=== PATIENT | female | born 1990 | race Caucasian/White ===

== ENCOUNTER 2018-04-20 00:13 | Emergency (ER) | payer MEDICAID, SELFPAY ==
[2018-04-20 00:15] VITALS: BP 129/88; PULSE 72; RESP 16; TEMP 37; O2SAT 100
--- NOTE | 2018-04-20 00:30 | W.ED.GENAD ---
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 Details Chief Complaint: Abd Prob Clinical Impression: Abdominal pain Primary Care Provider: Mainor Brooks ED Provider: Kendrick Moraes Home Meds and New Rx's Prescriptions: Continue norgestimate-ethinyl estradiol [Waller-Linyah] 1 EACH tablet 1 ea PO DAILY RF: 0 clobetasol 15 GM ointment 15 gm Topical PRN Qty: 2 RF: 0 Discharge Instructions Instructions: Abdominal Pain (ED) Additional Instructions: Your lab work did not show any concerning findings. I suspect you have a small ovarian cyst that is causing your pain you can take 1000mg tylenol and 600mg ibuprofen every 6 hours for pain as needed If you have severe worsening of pain, fevers or persistent vomit return to the emergency department Discharge Data Discharge Physician: Kendrick Moraes Medical Decision Making MDM Narrative Medical decision making narrative: 28 yo female comes in with right lower abdominal pain/flank pain. She states she was here in February for similar symptoms and had negative work up, andon review of chart she had labs and ct that showed no acute pathology. She states since then she has had some mild pain in that area but today has been worse and has had nausea so she came here. She denies vomit or fevers, has had nausea. Her exam seems most likely a muscle strain given pain in oblique area but does have rlq pain though she states this pain is similar to when she was here last and had normal appendix making appendicitis less likely. No pelvic pain or intermittent pain and had normal ovaries on ct 2 months ago so doubt torsion due to mass. Will obtain lab work and reasses. Urine negative so doubt ectopic labs are unremarkable and patient is feeling much better. STill negative rovsing's, no pain at mcburney's negative obturator and psoas sign. Her CT done in February did note some pelvic free fluid which is likely from a small ovarian cyst and I suspect this is what is causing her pain now. I did offer to obtain CT but pt declined at this time and would prefer to take otc pain meds and return if she worsens and follow up with her pcp Differential Diagnosis appendicitis, ovarian cyst, oblique strain, rectus strain Lab Data Lab results reviewed: Yes I reviewed the patient's lab results. HPI - General Adult General Mode of arrival: ambulatory. Date/Time Provider Initiated Documentation: 04/20/18 00:22. Limitations to Documentation: no limitations. Information obtained by: patient. History of Present Illness 28 year old F presents to the emergency department with the chief complaint of abdominal pain, described as moderate, with intensity rated at 4. Quality is described as aching, and is localized to the abdomen. Patient reports no radiation. Patient started experiencing this hour(s) (2) and it has been constant. No relieving factors improve symptom(s), No exacerbating factors reported . Patient notes other (nausea). Patient did receive the following treatments prior to arrival, none Related Data Home Medications Medication Instructions Recorded Confirmed clobetasol 15 gm TOPICAL PRN #2 tube 03/08/17 norgestimate-ethinyl estradiol 1 ea PO DAILY 03/08/17 04/20/18 [Waller-Linyah] Allergies Allergy/AdvReac Type Severity Reaction Status Date / Time No Known Allergies Allergy Unverified 04/20/18 00:19 General Stated Complaint: Abd Prob CARMEN: 3 Review of Systems Review of Systems All systems reviewed & are unremarkable except as noted in HPI and below Constitutional Denies chills, Denies fever(s) and Denies weakness Eyes Patient Denies loss of vision ENT Denies change in voice Cardiovascular Denies chest pain and Denies dyspnea Respiratory Denies dyspnea Gastrointestinal Denies vomiting Genitourinary Denies dysuria Musculoskeletal Denies joint swelling Integumentary/Breasts Denies rash Neurologic Denies loss of vision and Denies weakness Psychiatric Denies depression Endocrine Denies cold intolerance and Denies heat intolerance Allergic/Immunologic Reports urticaria PFSH Family History Grandfather Heart disease Grandmother Breast cancer Maternal Aunt Diabetes Social History Smoking/Tobacco Use Status: Never Exam Const General: no acute distress Orientation: alert HENMT Head: normal to inspection Ears: external ears normal General nose exam: external nose normal Mouth: moist mucous membranes Eyes General: appearance normal, both eyes and all related structures Neck Neck: normal visual inspection Resp Effort & Inspection: normal respiratory effort and able to speak in complete sentences Cardio Rate: regular rate GI Inspection: normal to inspection Palpation: soft and tender other (tenderness in rlq near the ann joint, no guarding or rebound, no pain over mcburney's, negative rovsings) Skin General skin exam: no rashes or lesions noted Neuro General: alert and oriented x3 Extrem General: normal to inspection Psych Mental Status: mental status grossly normal Course Vital Signs Temperature 37 C 04/20/18 00:15 Pulse 72 04/20/18 00:15 Respiratory Rate 16 04/20/18 00:15 Blood Pressure 129/88 04/20/18 00:15 Pulse Oximetry 100 04/20/18 00:15 Temperature 37 C 04/20/18 00:15 Pulse 72 04/20/18 00:15 Respiratory Rate 16 04/20/18 00:15 Blood Pressure 129/88 04/20/18 00:15 Pulse Oximetry 100 04/20/18 00:15
--- NOTE | 2018-04-20 00:33 | ED.GENADUL_ITS ---
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 Details Chief Complaint: Abd Prob Clinical Impression: Abdominal pain Primary Care Provider: Mainor Brooks ED Provider: Kendrick Moraes Home Meds and New Rx's Prescriptions: Continue norgestimate-ethinyl estradiol [Carter-Linyah] 1 EACH tablet 1 ea PO DAILY RF: 0 clobetasol 15 GM ointment 15 gm Topical PRN Qty: 2 RF: 0 Discharge Instructions Instructions: Abdominal Pain (ED) Additional Instructions: Your lab work did not show any concerning findings. I suspect you have a small ovarian cyst that is causing your pain you can take 1000mg tylenol and 600mg ibuprofen every 6 hours for pain as needed If you have severe worsening of pain, fevers or persistent vomit return to the emergency department Discharge Data Discharge Physician: Kendrick Moraes Medical Decision Making MDM Narrative Medical decision making narrative: 28 yo female comes in with right lower abdominal pain/flank pain. She states she was here in February for similar symptoms and had negative work up, andon review of chart she had labs and ct that showed no acute pathology. She states since then she has had some mild pain in that area but today has been worse and has had nausea so she came here. She denies vomit or fevers, has had nausea. Her exam seems most likely a muscle strain given pain in oblique area but does have rlq pain though she states this pain is similar to when she was here last and had normal appendix making appendicitis less likely. No pelvic pain or intermittent pain and had normal ovaries on ct 2 months ago so doubt torsion due to mass. Will obtain lab work and reasses. Urine negative so doubt ectopic labs are unremarkable and patient is feeling much better. STill negative rovsing 's, no pain at mcburney's negative obturator and psoas sign. Her CT done in February did note some pelvic free fluid which is likely from a small ovarian cyst and I suspect this is what is causing her pain now. I did offer to obtain CT but pt declined at this time and would prefer to take otc pain meds and return if she worsens and follow up with her pcp Differential Diagnosis appendicitis, ovarian cyst, oblique strain, rectus strain Lab Data Lab results reviewed: Yes I reviewed the patient's lab results. HPI - General Adult General Mode of arrival: ambulatory . Date/Time Provider Initiated Documentation: 04/20/18 00:22 . Limitations to Documentation: no limitations . Information obtained by: patient . History of Present Illness 28 year old F presents to the emergency department with the chief complaint of abdominal pain, described as moderate, with intensity rated at 4. Quality is described as aching, and is localized to the abdomen. Patient reports no radiation. Patient started experiencing this hour(s) (2) and it has been constant. No relieving factors improve symptom(s), No exacerbating factors reported . Patient notes other (nausea). Patient did receive the following treatments prior to arrival, none Related Data Home Medications Medication Instructions Recorded Confirmed clobetasol 15 gm TOPICAL PRN #2 tube 03/08/17 norgestimate-ethinyl estradiol 1 ea PO DAILY 03/08/17 04/20/18 [Carter-Linyah] Allergies Allergy/AdvReac Type Severity Reaction Status Date / Time No Known Allergies Allergy Unverified 04/20/18 00:19 General Stated Complaint: Abd Prob CARMEN: 3 Review of Systems Review of Systems All systems reviewed & are unremarkable except as noted in HPI and below Constitutional Denies chills, Denies fever(s) and Denies weakness Eyes Patient Denies loss of vision ENT Denies change in voice Cardiovascular Denies chest pain and Denies dyspnea Respiratory Denies dyspnea Gastrointestinal Denies vomiting Genitourinary Denies dysuria Musculoskeletal Denies joint swelling Integumentary/Breasts Denies rash Neurologic Denies loss of vision and Denies weakness Psychiatric Denies depression Endocrine Denies cold intolerance and Denies heat intolerance Allergic/Immunologic Reports urticaria PFSH Family History Grandfather Heart disease Grandmother Breast cancer Maternal Aunt Diabetes Social History Smoking/Tobacco Use Status: Never Exam Const General: no acute distress Orientation: alert HENMT Head: normal to inspection Ears: external ears normal General nose exam: external nose normal Mouth: moist mucous membranes Eyes General: appearance normal, both eyes and all related structures Neck Neck: normal visual inspection Resp Effort & Inspection: normal respiratory effort and able to speak in complete sentences Cardio Rate: regular rate GI Inspection: normal to inspection Palpation: soft and tender other (tenderness in rlq near the ann joint, no guarding or rebound, no pain over mcburney's, negative rovsings) Skin General skin exam: no rashes or lesions noted Neuro General: alert and oriented x3 Extrem General: normal to inspection Psych Mental Status: mental status grossly normal Course Vital Signs Temperature 37 C 04/20/18 00:15 Pulse 72 04/20/18 00:15 Respiratory Rate 16 04/20/18 00:15 Blood Pressure 129/88 04/20/18 00:15 Pulse Oximetry 100 04/20/18 00:15 Temperature 37 C 04/20/18 00:15 Pulse 72 04/20/18 00:15 Respiratory Rate 16 04/20/18 00:15 Blood Pressure 129/88 04/20/18 00:15 Pulse Oximetry 100 04/20/18 00:15
[2018-04-20 00:38] LABS: Bilirubin Negative (Negative); Blood Negative (Negative); Clarity Clear; Glucose Negative (Negative); Ketones Negative (Negative); Leukocyte Esterase Trace (Negative); Nitrite Negative (Negative); Urobilinogen 0.2 EU/dL (Up TO 0.2)
[2018-04-20] MEDS: Normal Saline 1,000 ML 1000 ML IV (00:40)
[2018-04-20] MEDS: Ondansetron 4 MG/2 ML VIAL IVP (00:40)
[2018-04-20] MEDS: Ketorolac 15 MG/ML VIAL IVP (00:41)
[2018-04-20 00:44] LABS: Abs Immature Grans 0.01 k/cumm (0.0-0.09); Absolute Basophil Count 0.02 k/cumm (0.0-0.2); Absolute Eosinophil Count 0.09 k/cumm (0.0-0.7); Absolute Lymphocyte Count 2.58 k/cumm (1.2-3.4); Absolute Monocyte Count 0.48 k/cumm (0.11-0.7); Absolute Neutrophil Count 2.72 k/cumm (1.2-6.7); Basophils % 0.3; Eosinophils % 1.5; HCT 37.1 % (36.0-46.0); HGB 12.8 g/dL (12.0-15.5); Immature Grans % 0.2; Lymphocytes % 43.7; Mean Corp. HGB Concentration 34.5 g/dL (32.0-36.0); Mean Corpuscular Hemoglobin 31.1 pg (27.0-33.0); Mean Platelet Volume 10.4 fL (8.0-11.0); Monocytes % 8.1; Neutrophils % 46.2; Platelet Count 183 x1000/uL (130-400); RBC 4.12 m/cumm (4.00-5.20); RBC Distribution Width 12.1 % (11.7-14.6)
[2018-04-20 00:45] LABS: Bacteria Rare HPF (Negative); C & S Indicated? No/Sq. Contamination; Casts Negative LPF (Negative); Crystals Negative HPF (Negative); Epithelial Cells Moderate HPF (Negative); Mucus Negative (Negative); RBC 0-2 (0-2)
[2018-04-20 01:02] LABS: ALT 20 U/L (12-78); AST 19 U/L (15-37); Albumin 3.6 g/dL (3.4-5.0); Alkaline Phosphatase 34 U/L (46-116); Anion Gap 9.4 mmol/L (3-11); BUN 18 mg/dL (7-18); Bilirubin, Total 0.3 mg/dL (0.2-1.0); CO2 26.6 mmol/L (21.0-32.0); CREATININE 0.83 mg/dL (0.55-1.02); Calcium 8.6 mg/dL (8.5-10.1); Chloride 104 mmol/L (98-107); Glucose 103 mg/dL (70-100); Lipase 248 U/L (73-393); Potassium 3.3 mmol/L (3.5-5.1); Sodium 140 mmol/L (136-145); Total Protein 7.1 g/dL (6.4-8.2)
[2018-04-20 01:20] VITALS: BP 105/63; PULSE 69; RESP 16; TEMP 37.1; O2SAT 99
== END 2018-04-20 01:22 | disposition home or self-care (01) ==
PROVIDERS: Emergency Provider Emergency Medicine; PCP Specialist/Technologist Athletic Trainer
DX: R10.31 Right lower quadrant pain (principal); R11.0 Nausea
CPT/HCPCS: 36415; 36416; 80053; 82962; 83690; 96361; 96374; 96375; 99284; 81003; 81015; 85025; J1885; J2405

== ENCOUNTER 2018-05-02 12:05 | Outpatient (REF) | payer MEDICAID, SELFPAY ==
--- NOTE | 2018-05-02 10:00 | PAPFT_PTH ---
PATIENT: Chasity Jack LOC: [facility] U#:[id number] AGE/SX: 28/F ROOM: RE05/02/[address]: JAMIE Bacon : 1990 BED: DIS: 05/02/2018 SPEC #: [id number] RECD: 05/02/18 13:05 STATUS: TATY REMelissa #: [id number] ROBERT: 05/02/18 10:[address]: Bonnie Mcbride DEPT: [facility] Cytology RECD BY: Chayo Sloan ENTERED: 05/02/18 13:05 SP TYPE: PAPFT OTHR DR: Mainor Brooks Tissues: 1 - CX/ENDOCX FOR PAP SMEARS Procedures: PAP THIN PREP/UVM Screening Comments: [id number]
[2018-05-03 15:57] LABS: Chlamydia Result Negative; GC Result Negative; Specimen Description CERVICAL
== END 2018-05-02 12:25 ==
LOC: LBN 12:05
PROVIDERS: PCP Specialist/Technologist Athletic Trainer; Visit Provider Nurse Practitioner Family
DX: Z12.4 Encounter for screening for malignant neoplasm of cervix (principal); Z11.3 Encounter for screening for infections with a predominantly sexual mode of transmission
CPT/HCPCS: 87491; 87591; 88142

== ENCOUNTER 2018-05-05 00:19 | Outpatient (CLI) | payer MEDICAID, SELFPAY ==
--- NOTE | 2018-05-05 12:51 | DI.US_ITS ---
SYMPTOMS/DIAGNOSIS: RLQ PAIN, R10.31 PELVIC ULTRASOUND: Transabdominal and transvaginal examination was performed. The uterus measures 7.9 cm long x 3 cm AP x 4.8 cm transverse. The endometrial stripe is within normal limits at .3 cm. No myometrial mass is present. The left ovary measures 2.5 x 1.8 x 2.1 cm. There is normal blood flow. No evidence of torsion. No suspicious ovarian mass is seen. There is a small amount of free fluid adjacent to the left ovary. The right ovary measures 7.8 x 4.4 x 7.3 cm. There is a 7.3 x 4.2 x 7.6 cm anechoic well circumscribed mass in the right ovary. No internal blood flow is seen. There is normal blood flow to the right ovary. Smaller follicular cysts are present. IMPRESSION: 7.6 cm simple right ovarian cyst. A follow up examination in 6-8 weeks is recommended for re-evaluation.
== END 2018-05-05 00:39 ==
PROVIDERS: PCP Specialist/Technologist Athletic Trainer; Visit Provider Nurse Practitioner Family
DX: R10.31 Right lower quadrant pain (principal); N83.291 Other ovarian cyst, right side
CPT/HCPCS: 76830; 76856

== ENCOUNTER 2018-05-18 15:27 | Outpatient (CLI) | payer MEDICAID, SELFPAY ==
[2018-05-18 16:13] LABS: Abs Immature Grans 0.01 k/cumm (0.0-0.09); Absolute Basophil Count 0.01 k/cumm (0.0-0.2); Absolute Eosinophil Count 0.05 k/cumm (0.0-0.7); Absolute Lymphocyte Count 1.93 k/cumm (1.2-3.4); Absolute Monocyte Count 0.31 k/cumm (0.11-0.7); Absolute Neutrophil Count 4.09 k/cumm (1.2-6.7); Basophils % 0.2; Eosinophils % 0.8; HCT 38.9 % (36.0-46.0); Immature Grans % 0.2; Lymphocytes % 30.2; Mean Corp. HGB Concentration 33.4 g/dL (32.0-36.0); Mean Corpuscular Hemoglobin 30.8 pg (27.0-33.0); Mean Corpuscular Volume 92.2 fL (80-95); Mean Platelet Volume 10.6 fL (8.0-11.0); Monocytes % 4.8; Neutrophils % 63.8; Platelet Count 240 x1000/uL (130-400); RBC 4.22 m/cumm (4.00-5.20)
[2018-05-18 17:24] LABS: HCG Quant, Pregnancy < 1 mIU/mL (1-3)
== END 2018-05-18 15:47 ==
PROVIDERS: PCP Specialist/Technologist Athletic Trainer; Visit Provider Obstetrics & Gynecology
DX: Z01.818 Encounter for other preprocedural examination (principal); Z01.84 Encounter for antibody response examination; Z01.83 Encounter for blood typing
CPT/HCPCS: 36415; 86850; 86900; 86901; 84702; 85025

== ENCOUNTER 2018-05-19 06:08 | Day surgery (SDC) | payer MEDICAID, SELFPAY ==
--- NOTE | 2018-05-18 16:49 | W.PM.HP.N ---
PFSH Family History Grandfather Heart disease Grandmother Breast cancer Maternal Aunt Diabetes Medical History Lichen sclerosus (Acute) Social History Smoking/Tobacco Use Status: Never Female Reproductive History Menstrual control method: pills Total pregnancies: 0 Meds Home Medications Medication Instructions Recorded Confirmed Type clobetasol 15 gm TOPICAL PRN #2 tube 03/08/17 05/19/18 History levonorgestrel-ethinyl estradiol 1 tab PO DAILY #84 tab 05/02/18 05/19/18 Rx 0.1 mg-20 mcg tablet ibuprofen 800 mg PO PRN PRN 05/19/18 05/19/18 History ibuprofen [Advil] 400 mg PO PRN PRN 05/19/18 05/19/18 History oxycodone-acetaminophen [Percocet] 1 tab PO PRN PRN 05/19/18 05/19/18 History Allergies Allergy/AdvReac Type Severity Reaction Status Date / Time No Known Allergies Allergy Verified 05/19/18 06:26
--- NOTE | 2018-05-18 16:56 | W.PM.HP.N ---
Assessment and Plan (1) Right ovarian cyst: Current visit: Yes Status: Acute right ovarian cyst plan laparoscopic right ovarian cystectomy r/b/a discussedquestions asked and answered consent will be signed before surgery 28 yo female originally saw Bonnie Al NP for pelvic pain. An US was performed and demonstrated a RIGHT ovarian cyst 7.3x 4.2 x 7.6 cm. Ovary had normal flow and cyst is well circumscribed. Discussed options with patient and recommend due to pain and cyst size and risk for tortion laparascopic ovarian cystectomy is reasonable R/B/A procedure have been reviewed Review of Systems Review of Systems All systems reviewed & are unremarkable except as noted in HPI and below PFSH Family History Grandfather Heart disease Grandmother Breast cancer Maternal Aunt Diabetes Medical History Lichen sclerosus (Acute) Social History Smoking/Tobacco Use Status: Never Female Reproductive History Menstrual control method: pills Total pregnancies: 0 Meds Home Medications Medication Instructions Recorded Confirmed Type clobetasol 15 gm TOPICAL PRN #2 tube 03/08/17 05/18/18 History levonorgestrel-ethinyl estradiol 1 tab PO DAILY #84 tab 05/02/18 05/18/18 Rx 0.1 mg-20 mcg tablet Allergies Allergy/AdvReac Type Severity Reaction Status Date / Time No Known Allergies Allergy Verified 05/02/18 08:55 Exam Resp Effort & Inspection: normal respiratory effort Auscultation: clear to auscultation bilaterally Other: bilateral normal breath sounds Cardio Rate: regular rate Rhythm: regular rhythm Heart Sounds: S1 normal and S2 normal TV US 7.3 x 7.6 x 4.2 cm right ovarian cyst
[2018-05-19] VITALS (8 sets, daily range): BP systolic 105–117; BP diastolic 61–71; PULSE 63–74; RESP 10–20; TEMP 36.4–37.1; O2SAT 96–99
[2018-05-19] MEDS: Lactated Ringers 1,000 ML 125 ML IV ×3 (06:43→10:06)
--- NOTE | 2018-05-19 09:22 | OVAR_PTH ---
PATIENT: Chasity Jack LOC: [facility] U#:[id number] AGE/SX: 28/F ROOM: RE05/19/[address]: Tiffanie Yates MD : 1990 BED: DIS: 05/19/2018 SPEC #: [id number] RECD: 05/19/18 12:56 STATUS: TATY REQ #: [id number] ROBERT: 05/19/18 09:[address]: Tiffanie Yates DEPT: Surgical Specimen RECD BY: Chayo Sloan ENTERED: 05/19/18 12:57 SP TYPE: KIZZY PALMER DR: Mainor Brooks Tissues: 1 - OVARY BIOPSY Procedures: GROSS AND MICRO LEVEL 4 Comments: [id number]
[2018-05-19] MEDS: Cellulose,Oxidized 4X8 1 PACKET MC (10:10)
[2018-05-19] MEDS: Bupivacaine 0.5% Pres-Free 30 ML VIAL (10:18)
--- NOTE | 2018-05-19 10:56 | W.PM.OP ---
Date of service: 05/19/18 Operative Note DATE OF PROCEDURE: 05/19/18 PRE-OP DIAGNOSIS: left ovarian cyst POST-OP DIAGNOSIS: same PROCEDURE: Laparoscopic Left ovarian cystectomy Patient was taken to OR were she was properly identified. She was then placed on table the operating table in a dorsal supine position and general anesthesia was induced without difficulty. SCD boots were applied she was positioned in a dorsal lithotomy position and she was prepped and draped in the usual fashion. A formal time out procedure was performed confirming patient and procedure. Three laparoscopic ports were placed after injecting with marcaine .25% 5 mm port at umbilicus and rlq and 10mm port rlq. The patient was placed in Trendelenberg position and an inspection of pelvis and abdomen ensued with the above findings. Attention was turned to the right ovary it was elevated and a linear incision was made in the ovarian capsule. the tissue was opened to the underlying cyst . the cyst was dissected free and the ovarian cyst wall removed with a series of counter traction. The ovarian base was cauterized until hemostyatic a layer of surgicel was applied. The pelvis was copiously irrigated and hemostasis was confirmed. The abdomen was desufflated of gas , hemostasis remained and th eports were removed, The LLQ fascia was closed with a figure of eight of 2-0 vicryl. The skin was closed with 4-0 vicryl in a subcuticular fashion. Sponge lap needle instrument count was correct x 2. The patient was awakened and transferred to PACU in stable condition. SURGEON: Tiffanie Yates ANESTHESIA: GETA ESTIMATED BLOOD LOSS: 100 PATHOLOGY: other (left ovarian cyst wall) COMPLICATIONS: None Patient was transported to: PACU Patient's condition: stable Implants: none Indications: Large left ovarian cyst Pain and reduce tortion risk Findings: left simple ovarian cyst normal right ovary normal tubes uterus bladder ureters appendix and gb
[2018-05-19] MEDS: oxyCODONE 5 mg/Acetaminophen 325 mg TAB PO (11:57)
== END 2018-05-19 13:50 | disposition home or self-care (01) ==
PROVIDERS: PCP Specialist/Technologist Athletic Trainer; Visit Provider Obstetrics & Gynecology
PROC: (CPT 58662; principal; 2018-05-19 07:30)
DX: N83.01 Follicular cyst of right ovary (principal)
CPT/HCPCS: 58662; 88305; NC; J0131; J1100; J1200; J1885; J2250; J2405; J3010

== ENCOUNTER 2018-09-13 14:45 | Outpatient (REF) | payer MEDICAID, SELFPAY ==
[2018-09-13 20:11] LABS: HCT 39.1 % (36.0-46.0); HGB 12.8 g/dL (12.0-15.5)
[2018-09-13 20:37] LABS: Anion Gap 9.5 mmol/L (3-11); BUN 14 mg/dL (7-18); CO2 27.5 mmol/L (21.0-32.0); CREATININE 0.92 mg/dL (0.55-1.02); Calcium 8.7 mg/dL (8.5-10.1); Chloride 105 mmol/L (98-107); Cholesterol 177 mg/dL (50-200); Glucose 111 mg/dL (70-100); HDL Cholesterol 54 mg/dL (40-60); LDL CHOLESTEROL 102 mg/dL (<100); Magnesium 1.9 mg/dL (1.8-2.4); Potassium 3.7 mmol/L (3.5-5.1); Sodium 142 mmol/L (136-145); Triglyceride 78 mg/dL (30-150)
== END 2018-09-13 15:05 ==
LOC: NCHCN 14:45
PROVIDERS: PCP Specialist/Technologist Athletic Trainer; Visit Provider Specialist/Technologist Athletic Trainer
DX: R42 Dizziness and giddiness (principal); Z00.00 Encounter for general adult medical examination without abnormal findings
CPT/HCPCS: 80048; 80061; 83721; 83735; 85014; 85018

== ENCOUNTER 2019-07-10 12:39 | Outpatient (REF) | payer OTHER, SELFPAY ==
--- NOTE | 2019-07-10 09:30 | PAPFT_PTH ---
PATIENT: Chasity Jack LOC: [facility] U#:[id number] AGE/SX: 29/F ROOM: RE07/10/[address]: JAMIE Bacon : 1990 BED: DIS: 07/10/2019 SPEC #: [id number] RECD: 07/10/19 12:54 STATUS: TATY REMelissa #: [id number] ROBERT: 07/10/19 09:[address]: Bonnie Mcbride DEPT: [facility] Cytology RECD BY: Chayo Sloan ENTERED: 07/10/19 12:55 SP TYPE: PAPFT OTHR DR: Mainor Brooks Tissues: 1 - CX/ENDOCX FOR PAP SMEARS Procedures: PAP THIN PREP/UVM Screening Comments: [id number]
[2019-07-11 12:50] LABS: Chlamydia Result Negative (Negative)
[2019-07-11 16:09] LABS: GC Result Negative (Negative)
== END 2019-07-10 12:59 ==
LOC: LBN 12:39
PROVIDERS: PCP Specialist/Technologist Athletic Trainer; Visit Provider Nurse Practitioner Family
DX: Z11.3 Encounter for screening for infections with a predominantly sexual mode of transmission (principal); Z12.4 Encounter for screening for malignant neoplasm of cervix
CPT/HCPCS: 87491; 87591; 88142

== ENCOUNTER 2019-09-04 09:00 | Emergency (ER) | payer OTHER, SELFPAY ==
[2019-09-04 09:07] VITALS: BP 123/84; PULSE 85; TEMP 36.4; O2SAT 98
--- NOTE | 2019-09-04 09:21 | ED.GENADUL_ITS ---
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 Primary Care Provider: Mainor Brooks ED Provider: Kendrick Moraes Home Meds and New Rx's Prescriptions: New oxycodone 5 mg tablet 5 mg PO Q6H PRN (Reason: pain) Qty: 10 RF: 0 ondansetron 4 mg tablet,disintegrating 4 mg PO Q8H PRN (Reason: nausea and vomiting) Qty: 30 RF: 0 Continued levonorgestrel-ethinyl estrad [Aviane] 0.1-20 mg-mcg tablet 1 tab PO DAILY Qty: 84 RF: 3 ibuprofen [Advil] 200 mg Tablet 400 mg PO PRN PRNRF: 0 ibuprofen 800 mg Tablet 800 mg PO PRN PRN (Reason: Pain) RF: 0 Discharge Instructions Additional Instructions: Your ovary showed a 10cm mass on the left if you don't hear from [facility] call them this afternoon for pain take 600mg ibuprofen and 1000mg tylenol every 6 hours for pain. If you need additional pain relief take 1 oxycydone, do not drink alcohol or drive if you take this medicine if you have severe worsening pain or persistent vomit return to the emergency department Medical Decision Making 29 yo female with hx of prior 8cm ovarian cyst removed surgically a year ago comes in with 3 days of right lower pelvic pain similar to prior cyst pain she's had. She mich vomti but has had nausea. Denies vaginal bleeding or discharge or fevers. has right lower abdominal tenderness, some mild left lower pain, no rebound or guarding. suspect cyst, will botain hcg, ua and u/s and reassess. pt feels much better after toradol, labs unremarkable. u/s showing 10cm mass on left ovary with maintained flow, spoke with Dr. Farias and Dr. Russell from OBGYN who feel given her pain has improved and flow intact can f/u with them as outpatient and patient is also comfortable with this. She understands if pain significantly increases she needs to return to the ED immediately Differential Diagnosis Differential Diagnosis: ovarian cyst, torsion, uti, Medical Records Medical records reviewed: Yes I reviewed the patient's medical records. Imaging Data Radiologic Study: Attestation: I personally reviewed and interpreted this imaging study as follows: Imaging: Ultrasound Radiologist's impression: IMPRESSION: Heterogeneous left adnexal collection which could represent a tubo-ovarian abscess versus torsion or less likely a solid mass. Lab Data Lab results reviewed: Yes I reviewed the patient's lab results. HPI General Mode of arrival: ambulatory . Date/Time Provider Initiated Documentation: 09/04/19 09:03 . Limitations to Documentation: no limitations . Information obtained by: patient . History of Present Illness 29 year old F presents to the emergency department with the chief complaint of right sided pelvic pain, described as moderate, and it has been constant. No relieving factors improve symptom(s), No exacerbating factors reported . Patient did receive the following treatments prior to arrival, none Related Data Home Medications Medication Instructions Recorded Confirmed ibuprofen 800 mg PO PRN PRN 05/19/18 09/04/19 ibuprofen [Advil] 400 mg PO PRN PRN 05/19/18 09/04/19 levonorgestrel-ethinyl estradiol 1 tab PO DAILY #84 tab 07/10/19 09/04/19 0.1 mg-20 mcg tablet ondansetron 4 mg PO Q8H PRN #30 tab 09/04/19 oxycodone 5 mg PO Q6H PRN #10 tab 09/04/19 Previous Rx's Medication Instructions Recorded levonorgestrel-ethinyl estradiol 1 tab PO DAILY #84 tab 07/10/19 0.1 mg-20 mcg tablet ondansetron 4 mg PO Q8H PRN #30 tab 09/04/19 oxycodone 5 mg PO Q6H PRN #10 tab 09/04/19 Allergies Allergy/AdvReac Type Severity Reaction Status Date / Time No Known Allergies Allergy Verified 09/04/19 09:10 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 Review of Systems All systems reviewed & are unremarkable except as noted in HPI and below Constitutional Constitutional: Denies chills, Denies fever(s) and Denies weakness Cardiovascular Cardiovascular: Denies chest pain and Denies dyspnea Respiratory Respiratory: Denies cough and Denies dyspnea Gastrointestinal Gastrointestinal: Denies vomiting Genitourinary Genitourinary: Denies dysuria Musculoskeletal Musculoskeletal: Denies joint swelling Neurologic Neurologic: Denies weakness Psychiatric Psychiatric: Denies depression [facility] Social History (Updated 07/10/19 @ 09:12 by Vero Tonny, RN) Smoking/Tobacco Use Status: Never Drug use: Never Substance use type: marijuana Do you feel safe in your relationship?: Yes Female Reproductive History Menstrual control method: pills History History 0 Para Hx # Term Pregnancies Multiple births Hx # Pregnancies Ectopic pregnancies AB induced Hx Number of Living Children AB spontaneous Exam Const General: no acute distress Orientation: alert HENMT Head: normal to inspection Ears: external ears normal General nose exam: external nose normal Mouth: moist mucous membranes Eyes General: appearance normal, both eyes and all related structures Neck Neck: normal visual inspection Resp Effort & Inspection: normal respiratory effort and able to speak in complete sentences Cardio Rate: regular rate GI Palpation: soft Skin General skin exam: no rashes or lesions noted Neuro General: alert and oriented x3 Extrem General: normal to inspection Psych Mental Status: mental status grossly normal Course Vital Signs Vital signs: Vital Signs Temperature 36.4 C L 09/04/19 09:07 Pulse 85 09/04/19 09:07 Blood Pressure 123/84 09/04/19 09:07 Pulse Oximetry 98 09/04/19 09:07 Temperature 36.4 C L 09/04/19 09:07 Temperature Source Skin 09/04/19 09:07 Pulse 85 09/04/19 09:07 Respiratory Effort 09/04/19 09:09 Blood Pressure 123/84 09/04/19 09:07 Blood Pressure Position Sitting 09/04/19 09:07 Pulse Oximetry 98 09/04/19 09:07 Oxygen Delivery Method Room Air 09/04/19 09:07 Oxygen Flow Rate 0 09/04/19 09:07 Pain Level 7 09/04/19 09:07
[2019-09-04 09:33] LABS: Bilirubin Negative (Negative); Blood Negative (Negative); Clarity Clear (Clear); Glucose Negative (Negative); Ketones Negative (Negative); Leukocyte Esterase Trace (Negative); Nitrite Negative (Negative); Urobilinogen 0.2 EU/dL (Up TO 0.2)
[2019-09-04] MEDS: Normal Saline 1,000 ML 1000 ML IV (09:38)
[2019-09-04] MEDS: Normal Saline Flush 10 ML SYR IVP (09:38)
[2019-09-04] MEDS: Ondansetron 4 MG/2 ML VIAL IVP (09:40)
[2019-09-04] MEDS: Ketorolac 15 MG/ML VIAL IVP (09:40)
[2019-09-04 09:41] LABS: Bacteria Many HPF (Negative); C & S Indicated? No/Sq. Contamination; Casts Negative LPF (Negative); Crystals Negative HPF (Negative); Epithelial Cells Many HPF (Negative); Mucus Trace (Negative); RBC 0-2 HPF (0-2)
[2019-09-04 09:44] LABS: Abs Immature Grans 0.01 k/cumm (0.0-0.09); Absolute Basophil Count 0.02 k/cumm (0.0-0.2); Absolute Eosinophil Count 0.17 k/cumm (0.0-0.7); Absolute Lymphocyte Count 1.54 k/cumm (1.2-3.4); Absolute Monocyte Count 0.37 k/cumm (0.11-0.7); Absolute Neutrophil Count 2.82 k/cumm (1.2-6.7); Basophils % 0.4; Eosinophils % 3.4; HCT 40.6 % (36.0-46.0); HGB 13.7 g/dL (12.0-15.5); Immature Grans % 0.2 %; Lymphocytes % 31.2; Mean Corp. HGB Concentration 33.7 g/dL (32.0-36.0); Mean Corpuscular Hemoglobin 30.8 pg (27.0-33.0); Mean Corpuscular Volume 91.2 fL (80-95); Mean Platelet Volume 10.1 fL (8.0-11.0); Monocytes % 7.5; Neutrophils % 57.3; Platelet Count 262 x1000/uL (130-400); RBC 4.45 m/cumm (4.00-5.20); RBC Distribution Width 12.7 % (11.7-14.6); White Blood Cell Count 4.93 k/cumm (4.4-10.8)
[2019-09-04 09:54] LABS: ALT 36 U/L (14-59); AST 25 U/L (15-37); Albumin 3.9 g/dL (3.4-5.0); Alkaline Phosphatase 41 U/L (46-116); Anion Gap 10.9 mmol/L (3-11); BUN 12 mg/dL (7-18); Bilirubin, Total 0.4 mg/dL (0.2-1.0); CO2 25.1 mmol/L (21.0-32.0); CREATININE 0.88 mg/dL (0.55-1.02); Calcium 8.3 mg/dL (8.5-10.1); Chloride 105 mmol/L (98-107); Glucose 93 mg/dL (74-106); Lipase 135 U/L (73-393); Sodium 141 mmol/L (136-145)
--- NOTE | 2019-09-04 09:56 | DI.US_ITS ---
EXAM: US PELVIS TRANSVAGINAL CLINICAL HISTORY: right sided pelvic pain TECHNIQUE: Ultrasound performed using standard protocol. COMPARISON: US PELVIS TRANSVAGINAL from 05/05/2018 FINDINGS: Uterus measures 8.3 x 3.5 x 4.3 cm. The endometrial stripe measures 10 millimeters in thickness and appears homogeneous. There is some fluid around the right ovary. The right ovary is otherwise norm al in appearance. The left ovary is not seen discretely. There is a heterogeneous collection in the left adnexal region measuring 10 x 10 x 4 cm. There is blood flow within it. The findings could re present a tubo-ovarian abscess, ovarian mass versus torsion. There is no evidence of hydronephrosis. The urinary bladder is unremarkable. IMPRESSION: Heterogeneous left adnexal collection which could represent a tubo-ovarian abscess versus torsion or less likely a solid mass.
[2019-09-04 11:10] VITALS: BP 108/67; PULSE 78; RESP 16; TEMP 37.4; O2SAT 100
== END 2019-09-04 11:17 | disposition home or self-care (01) ==
PROVIDERS: Emergency Provider Emergency Medicine; PCP Specialist/Technologist Athletic Trainer
DX: R10.31 Right lower quadrant pain (principal); R93.5 Abnormal findings on diagnostic imaging of other abdominal regions, including retroperitoneum; R11.0 Nausea
CPT/HCPCS: 36415; 80053; 81025; 83690; 96361; 96374; 96375; 99284; 76830; 76856; 81003; 81015; 85025; 99285; J1885; J2405

== ENCOUNTER 2019-09-04 16:07 | Observation (INO) | payer OTHER, SELFPAY ==
[2019-09-04] VITALS (12 sets, daily range): BP systolic 94–161; BP diastolic 49–127; PULSE 70–124; RESP 14–24; TEMP 36.2–36.9; O2SAT 97–100
--- NOTE | 2019-09-04 16:22 | ED.GENADUL_ITS ---
Discharge Plan Disposition Patient Disposition: [facility] INPATIENT Condition: Stable Discharge Details Chief Complaint: Abd Prob Clinical Impression: Abdominal pain, Mass of ovary Admit Date/Time: 09/04/19 17:01 Admit Provider: Lesley Muñoz Attending Provider: Lesley Muñoz Primary Care Provider: Mainor Brooks ED Provider: Kendrick Moraes Medical Decision Making 29 yo female comes in with acute worsening pelvic pain an hour ago. I saw her earlier today after she had been having pelvic pain for 2 days. Her hcg was negative, u/s showed left 10cm ovarian mass with preserved flow. CAse discussed with obgyn and since pain resolved with toradol plan was to f/u with them in next 2 days. She was d/c'd and had been doing well until pain acutely worsened so came back. She does appear in pain with tenderness throughout the lower abdomen, no vaginal discharge or bleeding. Will discuss with obgyn given increase in pain as likely torsion. Dr. morales is planning on admitting and likely OR tomorrow, pain has improved. She would like a CT to evaluate for other potential causes of her pain as well Ct shows cystic mass with likely blood in the abodmen, Dr. morales made aware still planning on admitting and now serial h and h's. Differential Diagnosis Differential Diagnosis: torsion, cyst, Imaging Data Radiologic Study: Attestation: I personally reviewed and interpreted this imaging study as follows: Imaging: CT Scan Radiologist's impression: IMPRESSION: Apparent of active bleeding that appears to originate from a 2.8 cm fluid collection with an enhancing wall in the left adnexa. Neither ovary can be visualized. There is a large amount of relatively high density fluid throughout the abdomen pelvis the suggesting hemorrhage. There is diffuse the increased density surrounding the area of the ovaries and uterus consistent with v he can get down the keyboard he can ascular congestion and probable hemorrhage. After discussing this with Dr. Moraes, the patient has a negative test so an ectopic is not likely. Most likely this is from a ruptured hemorrhagic cyst with persistent active bleeding. Lab Data Lab results reviewed: Yes I reviewed the patient's lab results. HPI General Mode of arrival: ambulatory . Date/Time Provider Initiated Documentation: 09/04/19 16:16 . Limitations to Documentation: no limitations . Information obtained by: patient . History of Present Illness 29 year old F presents to the emergency department with the chief complaint of pelvic pain, described as moderate, Patient reports no radiation. Patient started experiencing this hour(s) (1) and it has been constant. No relieving factors improve symptom(s), No exacerbating factors reported . Patient did receive the following treatments prior to arrival, none Related Data Home Medications Medication Instructions Recorded Confirmed ibuprofen 800 mg PO PRN PRN 05/19/18 09/04/19 ibuprofen [Advil] 400 mg PO PRN PRN 05/19/18 09/04/19 levonorgestrel-ethinyl estradiol 1 tab PO DAILY #84 tab 07/10/19 09/04/19 0.1 mg-20 mcg tablet ondansetron 4 mg PO Q8H PRN #30 tab 09/04/19 09/04/19 oxycodone 5 mg PO Q6H PRN #10 tab 09/04/19 09/04/19 Previous Rx's Medication Instructions Recorded levonorgestrel-ethinyl estradiol 1 tab PO DAILY #84 tab 07/10/19 0.1 mg-20 mcg tablet ondansetron 4 mg PO Q8H PRN #30 tab 09/04/19 oxycodone 5 mg PO Q6H PRN #10 tab 09/04/19 Allergies Allergy/AdvReac Type Severity Reaction Status Date / Time No Known Allergies Allergy Verified 09/04/19 16:38 General Stated Complaint: Abd Prob CARMEN: 3 Review of Systems All systems reviewed & are unremarkable except as noted in HPI and below Constitutional Constitutional: Denies chills, Denies fever(s) and Denies weakness Cardiovascular Cardiovascular: Denies chest pain and Denies dyspnea Respiratory Respiratory: Denies cough and Denies dyspnea Gastrointestinal Gastrointestinal: Denies abdominal pain, Denies nausea and Denies vomiting Musculoskeletal Musculoskeletal: Denies joint swelling Neurologic Neurologic: Denies weakness Psychiatric Psychiatric: Denies depression [facility] Social History (Updated 09/04/19 @ 17:12 by Lesley Muñoz MD) Smoking/Tobacco Use Status: Never Alcohol Intake: current Alcohol Intake frequency: a few times a week Drug use: Never Substance use type: does not use Household members: significant other Number of Children: 0 Sexually active: Yes Do you feel safe in your relationship?: Yes Female Reproductive History Menstrual control method: pills History History 0 Para Hx # Term Pregnancies Multiple births Hx # Pregnancies Ectopic pregnancies AB induced Hx Number of Living Children AB spontaneous Exam Const General: other (in pain) Orientation: alert HENMT Head: normal to inspection Ears: external ears normal General nose exam: external nose normal Mouth: moist mucous membranes Eyes General: appearance normal, both eyes and all related structures Neck Neck: normal visual inspection Resp Effort & Inspection: normal respiratory effort and able to speak in complete sentences Cardio Rate: regular rate GI Palpation: soft Skin General skin exam: no rashes or lesions noted Neuro General: alert and oriented x3 Extrem General: normal to inspection Psych Mental Status: mental status grossly normal Course Vital Signs Vital signs: Vital Signs Temperature 36.6 C 09/04/19 16:11 Pulse 124 H 09/04/19 16:11 Respiratory Rate 09/04/19 16:11 Blood Pressure 161/127 H 09/04/19 16:11 Pulse Oximetry 100 09/04/19 16:11 Temperature 36.6 C 09/04/19 16:11 Temperature Source Skin 09/04/19 16:11 Pulse 124 H 09/04/19 16:11 Respiratory Rate 09/04/19 16:11 Blood Pressure 161/127 H 09/04/19 16:11 Blood Pressure Position Supine 09/04/19 16:11 Pulse Oximetry 100 09/04/19 16:11 Oxygen Delivery Method Room Air 09/04/19 16:11 Oxygen Flow Rate 0 09/04/19 16:11 Pain Level 10 09/04/19 16:11
[2019-09-04] MEDS: Normal Saline 1,000 ML 1000 ML IV (16:29)
[2019-09-04] MEDS: Ondansetron 4 MG/2 ML VIAL (16:30)
[2019-09-04] MEDS: fentaNYL 100 MCG/2 ML VIAL IVP (16:31)
[2019-09-04 16:41] LABS: Abs Immature Grans 0.02 k/cumm (0.0-0.09); Absolute Basophil Count 0.02 k/cumm (0.0-0.2); Absolute Eosinophil Count 0.11 k/cumm (0.0-0.7); Absolute Lymphocyte Count 1.96 k/cumm (1.2-3.4); Absolute Monocyte Count 0.66 k/cumm (0.11-0.7); Absolute Neutrophil Count 6.36 k/cumm (1.2-6.7); Basophils % 0.2; Eosinophils % 1.2; HGB 11.9 g/dL (12.0-15.5); Immature Grans % 0.2 %; Lymphocytes % 21.5; Mean Corp. HGB Concentration 33.1 g/dL (32.0-36.0); Mean Corpuscular Hemoglobin 30.7 pg (27.0-33.0); Mean Platelet Volume 10.2 fL (8.0-11.0); Monocytes % 7.2; Neutrophils % 69.7; Platelet Count 288 x1000/uL (130-400); RBC 3.87 m/cumm (4.00-5.20); RBC Distribution Width 12.5 % (11.7-14.6); White Blood Cell Count 9.13 k/cumm (4.4-10.8)
[2019-09-04 16:54] LABS: ALT 32 U/L (14-59); AST 24 U/L (15-37); Albumin 3.7 g/dL (3.4-5.0); Alkaline Phosphatase 38 U/L (46-116); Anion Gap 10.1 mmol/L (3-11); BUN 14 mg/dL (7-18); Bilirubin, Total 0.4 mg/dL (0.2-1.0); CO2 26.9 mmol/L (21.0-32.0); CREATININE 0.96 mg/dL (0.55-1.02); Calcium 8.1 mg/dL (8.5-10.1); Chloride 104 mmol/L (98-107); Glucose 99 mg/dL (74-106); Potassium 3.8 mmol/L (3.5-5.1); Sodium 141 mmol/L (136-145); Total Protein 6.7 g/dL (6.4-8.2)
[2019-09-04] MEDS: Omnipaque 350 MG/ML 100 ML BTL IV (16:57)
--- NOTE | 2019-09-04 16:59 | DI.CT_ITS ---
EXAM: CT ABDOMEN PELVIS W CLINICAL HISTORY: ?appendicitis,PAIN TECHNIQUE: Post IV and without oral contrast. COMPARISON: RENAL COLIC WO CONTRAST from 02/17/2018 US PELVIS TRANSVAGINAL from 09/04/2019 FINDINGS: There is a moderate quantity of ascites seen extending around the liver and spleen as well as along the pericolic gutters and in the pelvis. There is high density material within the pelvis, posterio r to the uterus and surrounding the ovaries. There is a peripherally enhancing low-density lesion in the left adnexal region which is suspicious for a ruptured ovarian cyst. There is a linear area of contrast seen within the pelvic fluid collection which is consistent with active hemorrhage. The josh evelyn is somewhat displaced anteriorly by the pelvic hemorrhage. The bladder is unremarkable. There i s no free air or abscess. The appendix appears normal. There is no bowel dilatation or wall thicken ing. The heart size is normal. The lung bases are clear. There is a small low-density lesion in th e posterosuperior right lobe of the liver, likely a hemangioma. The gallbladder, spleen, pancreas, a drenals and kidneys are unremarkable. IMPRESSION: Ascites and pelvic hemorrhage with evidence of active extravasation. Findings likely represent a rup tured left ovarian cyst with continued active bleeding.
--- NOTE | 2019-09-04 17:05 | HPE_ITS ---
Date of service: 09/04/19 Time of Service: 17:06 Assessment and Plan Assessment and plan (1) Mass of left ovary: Status: Acute Assessment and plan: Acute episode of pelvic pain earlier today treated wi th IV ketorolac initially with good results in the emergency room this morning. However upon returning home she had recurrent symptoms and decision was made to admit her for pain control, and perform a CT of the abdomen and pelvis. I discussion with the anesthesia provider regarding the patient's n.p.o. status she had a full meal at noontime today. While the patient is in pain I do not feel that she is in danger of ovarian torsion and can have a laparoscopic left ovarian cystectomy possible in the a.m. on 09/05/2019 after being n.p.o for an appropriate amount of time. I will consent the patient for surgery after she returns from CAT scan of the abdomen and pelvis. History of Present Illness History of Present Illness Chief Complaint: Recurrent right greater than left- sided pelvic pain Narrative: Patient is a 29-year-old G0 female who returned to the emergency room this evening after being evaluated earlier in the day and diagnosed with a 10 cm left ovarian ovarian cyst. Ultrasound performed showed flow to the ovary and torsion was low on the differential diagnosis. She received Toradol in the emergency room and was well enough to be discharged. Upon arrival home she ate a large lunch and then had a recurrence of her pain and re-presented to the emergency department. No complaints of nausea vomiting no complaint of fever pain remains right greater than left-sided. PGYNHx OCP use since age 20. Patient recently changed her formulation of OCP secondary to nausea. She denies any issues with noncompliance forgetting or taking her OCPs late. 2019 STI testing negative. 05/19/2018 laparoscopic right ovarian cystectomy performed secondary 7 x 7 cm to a symptomatic right ovarian simple ovarian cyst. Pathology was negative. No further issues until earlier today. Review of Systems Constitutional Constitutional: Reports system reviewed and no additional complaints, except as docu Cardiovascular Cardiovascular: Reports system reviewed and no additional complaints, except as docu Respiratory Respiratory: Reports system reviewed and no additional complaints, except as docu Gastrointestinal Gastrointestinal: Reports abdominal pain (Right> left sided.), Reports bloating (Since earlier today), Denies nausea and Denies vomiting Genitourinary Genitourinary: Reports as per HPI Musculoskeletal Musculoskeletal: Reports system reviewed and no additional complaints, except as docu Psychiatric Psychiatric: Reports system reviewed and no additional complaints, except as docu [facility] Social History (Updated 09/04/19 @ 17:12 by Lesley Muñoz MD) Smoking/Tobacco Use Status: Never Alcohol Intake: current Alcohol Intake frequency: a few times a week Drug use: Never Substance use type: does not use Household members: significant other Number of Children: 0 Sexually active: Yes Do you feel safe in your relationship?: Yes Female Reproductive History Menstrual control method: pills History History 0 Para Hx # Term Pregnancies Multiple births Hx # Pregnancies Ectopic pregnancies AB induced Hx Number of Living Children AB spontaneous Meds Home Medications and Allergies Home Medications Medication Instructions Recorded Confirmed Type ibuprofen 800 mg PO PRN PRN 05/19/18 09/04/19 History ibuprofen [Advil] 400 mg PO PRN PRN 05/19/18 09/04/19 History levonorgestrel-ethinyl estradiol 1 tab PO DAILY #84 tab 07/10/19 09/04/19 Rx 0.1 mg-20 mcg tablet ondansetron 4 mg PO Q8H PRN #30 tab 09/04/19 09/04/19 Rx oxycodone 5 mg PO Q6H PRN #10 tab 09/04/19 09/04/19 Rx Allergies Allergy/AdvReac Type Severity Reaction Status Date / Time No Known Allergies Allergy Verified 09/04/19 16:38 Exam Const General: in distress (Fentanyl being administered through the IV at the time of the exam) Nutritional Appearance: average body habitus Orientation: alert, awake and oriented x3 Resp Effort & Inspection: normal respiratory effort Auscultation: clear to auscultation bilaterally Cardio Rate: regular rate Rhythm: regular rhythm GI Palpation: soft, no hepatosplenomegaly, no masses, not rigid and tender in the RLQ (Greater than left lower quadrant.); not at McBurney's point, Mckeon's sign negative and with no rebound tenderness Percussion: normal to percussion Auscultation: normal bowel sounds General: deferred (I recommended a pelvic CAT scan) Skin General skin exam: no rashes or lesions noted Extrem General: normal to inspection, full ROM and normal capillary refill Psych Appearance: grossly normal Mental Status: mental status grossly normal Results Labs Result diagrams: 09/04/19 16:20 09/04/19 16:20 Labs: Laboratory Results - last 24 hr 09/04/19 09/04/19 16:20 16:20 WBC 9.13 D RBC 3.87 L Hgb 11.9 L Hct 36.0 MCV 93.0 MCH 30.7 MCHC 33.1 RDW 12.5 Plt Count 288 MPV 10.2 Immature Gran % 0.2 Neutrophils % 69.7 Lymphocytes % 21.5 Monocytes % 7.2 Eosinophils % 1.2 Basophils % 0.2 Absolute Neutrophils 6.36 Absolute Lymphocytes 1.96 Absolute Monocytes 0.66 Absolute Eosinophils 0.11 Absolute Basophils 0.02 Sodium 141 Potassium 3.8 Chloride 104 Carbon Dioxide 26.9 Anion Gap 10.1 BUN 14 Creatinine 0.96 Estimated GFR/1.73 m2 >= 60.00 Glucose 99 Calcium 8.1 L Total Bilirubin 0.4 AST 24 ALT 32 Alkaline Phosphatase 38 L Total Protein 6.7 Albumin 3.7 Last Vital Signs Temp 97.9 F 09/04/19 16:11 Pulse 124 H 09/04/19 16:11 Resp 20 09/04/19 16:11 BP 161/127 H 09/04/19 16:11 Pulse Ox 100 09/04/19 16:11
--- NOTE | 2019-09-04 17:46 | DI.VRAD_ITS ---
PROCEDURE INFORMATION: Exam: CT Abdomen And Pelvis With Contrast Exam date and time: 09/04/2019 4:56 PM Age: 29 years old Clinical indication: Abdominal pain and other: ? Appendicitis; Generalized; Additional info: Know 10 centimeter cist on ovary TECHNIQUE: Imaging protocol: Computed tomography of the abdomen and pelvis with intravenous contrast. Radiation optimization: All CT scans at this facility use at least one of these dose optimization techniques: automated exposure control; mA and/or kV adjustment per patient size (includes targeted exams where dose is matched to clinical indication); or iterative reconstruction. Contrast material: OMNIPAQUE 350; Contrast volume: 87 ml; Contrast route: IV; COMPARISON: CT RENAL COLIC WO CONTRAST 02/17/2018 7:08 PM FINDINGS: Liver: 1 cm hypodensity with somewhat lobulated margin and internal echoes most likely a small hemangioma in the upper liver. Gallbladder and bile ducts: Normal. No calcified stones. No ductal dilation. Pancreas: Normal. No ductal dilation. Spleen: Normal. No splenomegaly. Adrenals: Normal. No mass. Kidneys and ureters: Normal. No hydronephrosis. Stomach and bowel: Moderate distention of the stomach with a large amount of residual food material. No dilatation of the small bowel. Moderate fecal burden throughout the colon. Appendix: The appendix is not dilated. There is no appendicoliths. There is a small amount of air at the base of the appendix. Intraperitoneal space: Moderate to large amount of ascites around the liver scattered throughout the mesentery extending into the pericolic gutters. Extending from this cystic area is a hyperdense tubular structure that above believed to be active bleeding that extends posteriorly into the cul-de-sac all the way to the left side. Vasculature: Unremarkable. No abdominal aortic aneurysm. Lymph nodes: Unremarkable. No enlarged lymph nodes. Bladder: Unremarkable as visualized. Reproductive: Anteverted uterus measuring 6.8 cm in length. Bilayer endometrial thickness measures 7 mm. In the left adnexa is the somewhat irregular fluid collection with enhancing wall measuring 2.8 x 1.6 by 1.1 cm. There is a large amount of ill-defined density surrounding the uterus and the adnexa. Neither ovary is well visualized. Bones/joints: Unremarkable. No acute fracture. Soft tissues: Unremarkable. IMPRESSION: Apparent of active bleeding that appears to originate from a 2.8 cm fluid collection with an enhancing wall in the left adnexa. Neither ovary can be visualized. There is a large amount of relatively high density fluid throughout the abdomen pelvis the suggesting hemorrhage. There is diffuse the increased density surrounding the area of the ovaries and uterus consistent with v he can get down the keyboard he can ascular congestion and probable hemorrhage. After discussing this with Dr. Moraes, the patient has a negative test so an ectopic is not likely. Most likely this is from a ruptured hemorrhagic cyst with persistent active bleeding. Dictated and Authenticated by: Kendrick Burnett MD. Ordering:WINNIE Marks MD
[2019-09-04] MEDS: Ketorolac 30 MG/ML VIAL IVP ×2 (18:00→23:47)
[2019-09-04] MEDS: MORPHine 2 MG/ML SYR IVP ×2 (18:15→19:22)
[2019-09-04] MEDS: Normal Saline Flush 10 ML SYR IVP ×2 (18:17→19:20)
[2019-09-04] MEDS: Lactated Ringers 1,000 ML 125 ML IV ×2 (19:21→23:48)
--- NOTE | 2019-09-04 19:48 | W.PM.PROGNOT ---
Date of Service Date of service: 09/04/19 Time of Service: 19:48 Assessment and Plan Assessment and plan (1) Abdominal pain: Status: Acute Assessment and plan: We will proceed to the OR for a diagnostic laparoscopy evacuation of pelvic abdominal free fluid along with possible left ovarian cystectomy. Patient was informed of the risks of procedure including the risk of bleeding damage to surrounding structures including bowel bladder and blood vessels. She was informed that she may have a ovarian removal not just a cystectomy. In the event of bleeding that cannot be contained or controlled she may require a larger Pfannenstiel skin incision. Informed consent was signed her questions were answered Qualifiers: Abdominal location: right lower quadrant Qualified Code(s): R10.31 - Right lower quadrant pain (2) Mass of ovary: Status: Acute Subjective Subjective Patient reports: still having pain and no flatus Interval history since last seen: Intermittent stabbing pain offset by generalized abdominal pain that radiates to her shoulder. No nausea or vomiting. Exam Narrative Exam Narrative: Patient underwent a CAT scan of the abdomen and pelvis prior to her transfer to the [facility] for observation. The CAT scan showed free fluid and it was not clear to me if there are in fact had been a decompression of the left adnexal mass. I was concerned that the intermittent stabbing pain persisted despite narcotic and nonsteroidal anti-inflammatory medication. It is for that reason I recommended that we proceed with a laparoscopic left ovarian cystectomy and evacuation of pelvic free fluid. Patient was agreeable to the plan Const General: no acute distress Resp Effort & Inspection: normal respiratory effort GI Inspection: normal to inspection Palpation: guarding in the LLQ and in the RLQ, no masses, not rigid and tender Percussion: normal to percussion Auscultation: hypoactive bowel sounds Back/Spine/Pelvis Back: CVA tenderness Extrem General: normal to inspection, full ROM and normal capillary refill Objective Objective Clinical Data: Abnormal lab results 09/04/19 09/04/19 Range/Units 16:20 16:20 RBC 3.87 L (4.00-5.20) m/cumm Hgb 11.9 L (12.0-15.5) g/dL Calcium 8.1 L (8.5-10.1) mg/dL Alkaline Phosphatase 38 L (46-116) U/L Vital Signs Temperature 98.4 F 09/04/19 18:37 Temperature Source Oral 09/04/19 18:37 Pulse 83 09/04/19 18:26 Pulse Rhythm Regular 09/04/19 18:26 Respiratory Rate 16 09/04/19 18:37 Respiratory Effort 09/04/19 18:26 Respiratory Depth Normal 09/04/19 18:26 Blood Pressure 110/72 09/04/19 18:37 Blood Pressure Position Supine 09/04/19 16:11 Pulse Oximetry 98 09/04/19 18:37 Oxygen Delivery Method Room Air 09/04/19 18:37 Oxygen Flow Rate 0 09/04/19 18:37 Pain Level 10 09/04/19 18:37 Intake & Output 09/03/19 09/04/19 09/04/19 23:59 11:59 23:59 Weight 135 lb 0.001 oz Laboratory Results WBC 9.13 k/cumm (4.4-10.8) D 09/04/19 16:20 RBC 3.87 m/cumm (4.00-5.20) L 09/04/19 16:20 Hgb 11.9 g/dL (12.0-15.5) L 09/04/19 16:20 Hct 36.0 % (36.0-46.0) 09/04/19 16:20 MCV 93.0 fL (80-95) 09/04/19 16:20 MCH 30.7 pg (27.0-33.0) 09/04/19 16:20 MCHC 33.1 g/dL (32.0-36.0) 09/04/19 16:20 RDW 12.5 % (11.7-14.6) 09/04/19 16:20 Plt Count 288 x1000/uL (130-400) 09/04/19 16:20 MPV 10.2 fL (8.0-11.0) 09/04/19 16:20 Immature Gran % 0.2 % 09/04/19 16:20 Neutrophils % 69.7 09/04/19 16:20 Lymphocytes % 21.5 09/04/19 16:20 Monocytes % 7.2 09/04/19 16:20 Eosinophils % 1.2 09/04/19 16:20 Basophils % 0.2 09/04/19 16:20 Absolute Neutrophils 6.36 k/cumm (1.2-6.7) 09/04/19 16:20 Absolute Lymphocytes 1.96 k/cumm (1.2-3.4) 09/04/19 16:20 Absolute Monocytes 0.66 k/cumm (0.11-0.7) 09/04/19 16:20 Absolute Eosinophils 0.11 k/cumm (0.0-0.7) 09/04/19 16:20 Absolute Basophils 0.02 k/cumm (0.0-0.2) 09/04/19 16:20 Sodium 141 mmol/L (136-145) 09/04/19 16:20 Potassium 3.8 mmol/L (3.5-5.1) 09/04/19 16:20 Chloride 104 mmol/L (98-107) 09/04/19 16:20 Carbon Dioxide 26.9 mmol/L (21.0-32.0) 09/04/19 16:20 Anion Gap 10.1 mmol/L (3-11) 09/04/19 16:20 BUN 14 mg/dL (7-18) 09/04/19 16:20 Creatinine 0.96 mg/dL (0.55-1.02) 09/04/19 16:20 Estimated GFR/1.73 m2 >= 60.00 (mL/min/1.73m2) 09/04/19 16:20 Glucose 99 mg/dL (74-106) 09/04/19 16:20 Calcium 8.1 mg/dL (8.5-10.1) L 09/04/19 16:20 Total Bilirubin 0.4 mg/dL (0.2-1.0) 09/04/19 16:20 AST 24 U/L (15-37) 09/04/19 16:20 ALT 32 U/L (14-59) 09/04/19 16:20 Alkaline Phosphatase 38 U/L (46-116) L 09/04/19 16:20 Total Protein 6.7 g/dL (6.4-8.2) 09/04/19 16:20 Albumin 3.7 g/dL (3.4-5.0) 09/04/19 16:20 Patient ABO/Rh A Positive 09/04/19 16:20 Antibody Screen Negative 09/04/19 16:20
--- NOTE | 2019-09-04 20:15 | SUR.PREOP ---
Pt to OR at 2009. Report given to circulating RN
[2019-09-04] MEDS: Cellulose,Oxidized 4X8 1 PACKET MC (20:54)
[2019-09-04] MEDS: Bupivacaine 0.25% Pres-Free 30 ML VIAL (21:03)
--- NOTE | 2019-09-04 21:41 | W.PM.OP ---
Date of service: 09/04/19 Time of Service: 21:41 Operative Note Operative Note DATE OF PROCEDURE: 09/04/19 PRE-OP DIAGNOSIS: Pelvic free fluid and left ovarian cyst POST-OP DIAGNOSIS: same PROCEDURE: Diagnostic laparoscopy with aspiration of hemoperitoneum and cauterization of left ovarian surface SURGEON: Lesley Muñoz BITUMINOUS DISTRIBUTOR OPERATOR: Sage Atwood ANESTHESIA: GETA ESTIMATED BLOOD LOSS: 800 (Hemoperitoneum only. ) PATHOLOGY: none sent COMPLICATIONS: None Patient was transported to: PACU Patient's condition: stable Indications: 29-year-old G0 female with a documented left ovarian mass who has had recurrent symptoms of severe abdominal and pelvic pain and was found to have free fluid on a CAT scan of the abdomen pelvis. Findings: Hemoperitoneum of unclotted and clotted blood within the anterior and posterior cul-de-sac left ovary had a 1 cm opening of the surface as suggested the exit site of the hemorrhagic cyst. That site was not actively bleeding. There was oozing of bright red blood immediately superior to the 1 cm opening that was easily cauterized. Fallopian tubes on both the right and left adnexa appeared normal. The right ovary was normal size there was a ivy, lobular, rounded 1 cm mass adjacent to the right ovary my impression was that it was scar tissue from her previous ovarian cystectomy. No excrescences, no active bleeding from the right ovary. After abdomen was normal as was the uterus.. Procedure Description: Patient was taken to the operating room where she was placed in the dorsal supine position and general endotracheal anesthesia was administered without difficulty. She was then placed in dorsal lithotomy position in [facility] with SCDs in place. She was prepped and draped in the usual sterile fashion a surgical timeout was performed. A bivalve speculum was placed in the vagina and the uterine manipulator was introduced through the cervical office and held in place for the remainder of the case. Attention was turned to the patient's abdomen where the base of the umbilicus was infiltrated with quarter percent Marcaine without epinephrine. A scalpel was then used to make a vertical skin incision at the base of the umbilicus through which a varies needle was introduced with carbon dioxide gas flowing. Intra-abdominal placement was confirmed with a drop in the intra-abdominal pressure. Once a pneumo- peritoneum was established the varies needle was withdrawn and a 10 mm Visiport was inserted under direct observation into the abdominal cavity. Patient was placed in Trendelenburg and under direct observation a 5 mm port was placed in the right lower quadrant after infiltration of the site with 1% and a 5 mm incision made with a scalpel. Similar technique was used on the contralateral abdominal wall and the 5 mm port placed under direct observation. A suction aspirator was used to remove the blood from around the uterus cul-de-sac and adnexa. Left adnexa was carefully inspected with the above-noted findings. Monopolar electrocautery was used to control the bleeding at the site superior to 1 cm opening in the surface of the ovary. That site was hemostatic upon inspection and a square of Surgicel was placed against that surface to assure hemostasis. Final inspection was made of the pelvis and abdomen and under direct observation two 5 mm trocars were removed. The sites were hemostatic. Patient was placed in dorsal supine position pneumoperitoneum was reduced and the umbilical port was removed and the rectus fascia reapproximated with interrupted sutures of 0 Vicryl x2. The skin of all trocar incisions was reapproximated with a subcuticular closure of 4-0 Monocryl and the skin sealed with skin glue. The uterine manipulator was removed from the patient's vagina and the site of the single-tooth tenaculum was hemostatic. A in and out catheterization was performed 400 cc of dark dao urine. The patient was placed in the dorsal supine position awakened extubated and transported recovery in stable condition all sponge lap needle counts are correct x2
[2019-09-05] MEDS: oxyCODONE 5 mg/Acetaminophen 325 mg TAB PO ×2 (01:07→02:13)
[2019-09-05] MEDS: Ketorolac 30 MG/ML VIAL IVP ×2 (05:55→07:32)
[2019-09-05 05:56] VITALS: BP 99/59; PULSE 77; RESP 18; TEMP 36.5; O2SAT 97
--- NOTE | 2019-09-05 06:00 | NUR.NOTE ---
I and O for 11p-7a 1400 cc out urine, 700 in po, 1222 in IV. pt more comfortable as night went on, sig other, father and mother all stayed with her Nursing Note:
[2019-09-05 06:27] LABS: HCT 28.4 % (36.0-46.0); HGB 9.3 g/dL (12.0-15.5); Mean Corp. HGB Concentration 32.7 g/dL (32.0-36.0); Mean Corpuscular Hemoglobin 30.6 pg (27.0-33.0); Mean Corpuscular Volume 93.4 fL (80-95); Platelet Count 212 x1000/uL (130-400); RBC 3.04 m/cumm (4.00-5.20); RBC Distribution Width 12.3 % (11.7-14.6); White Blood Cell Count 5.48 k/cumm (4.4-10.8)
[2019-09-05 07:20] VITALS: BP 105/59; PULSE 80; RESP 16; TEMP 37; O2SAT 98
[2019-09-05] MEDS: Normal Saline Flush 10 ML SYR IVP (07:38)
== END 2019-09-05 07:55 | disposition home or self-care (01) ==
LOC: ER 17:17 → OBS 17:35
PROVIDERS: Admitting Provider Obstetrics & Gynecology Gynecology; Emergency Provider Emergency Medicine; PCP Specialist/Technologist Athletic Trainer; Visit Provider Obstetrics & Gynecology Gynecology
PROC: 0W3J4ZZ Control Bleeding in Pelvic Cavity, Percutaneous Endoscopic Approach (ICD-10-PCS; CPT 49320; principal; 2019-09-04 20:00)
DX: N83.202 Unspecified ovarian cyst, left side (principal); N83.8 Other noninflammatory disorders of ovary, fallopian tube and broad ligament; R10.31 Right lower quadrant pain; R10.2 Pelvic and perineal pain; R18.8 Other ascites
CPT/HCPCS: 58662; 49322; 36415; 80053; 85027; 86850; 86900; 86901; 96360; 96361; 96374; 96375; 99221; 99285; NC; 74177; 85025; 99284; G0378; J1100; J1885; J2270; J2405; J2704; J3010; J3490

== ENCOUNTER 2020-04-23 01:35 | Outpatient (CLI) | payer OTHER, SELFPAY ==
--- NOTE | 2020-04-23 09:15 | DI.RAD_ITS ---
EXAM: XR ARTHRITIS SERIES CLINICAL HISTORY: Lwrist,hand 2 finger pn M79.642 PAIN LT HAND, M25.50 PAIN IN JOINT TECHNIQUE: COMPARISON: No exams were available for comparison FINDINGS: Two views of the hands and wrists were obtained. Carpal alignment and alignment of the phalanges is unremarkable. Bones and soft tissues appear normal. The bones appear normally mineralized. IMPRESSION: Negative examination of both hands. RADIATION DOSE DELIVERED: Total DLP
== END 2020-04-23 01:55 ==
PROVIDERS: PCP Family Medicine; Visit Provider Family Medicine
DX: M79.642 Pain in left hand (principal); M25.542 Pain in joints of left hand
CPT/HCPCS: 73120

== ENCOUNTER 2020-04-23 04:19 | Outpatient (CLI) | payer OTHER, SELFPAY ==
[2020-04-23 13:35] LABS: HCT 40.2 % (36.0-46.0); HGB 13.1 g/dL (11.2-15.7); MCH 29.3 pg (27.0-33.0); MCHC 32.6 % (32.0-36.0); MCV 89.9 fL (80-95); MPV 10.1 fL (8.0-11.0); Platelet Count 266 10^3/uL (130-400); RBC 4.47 10^6/uL (3.93-5.22); WBC 6.51 10^3/uL (4.4-10.8)
[2020-04-23 14:25] LABS: C-Reactive Protein 0.94 mg/dL (0.0-0.3)
[2020-04-23 14:28] LABS: ESR 13 mm/hr (0-20)
== END 2020-04-23 04:39 ==
PROVIDERS: PCP Family Medicine; Visit Provider Family Medicine
DX: M25.50 Pain in unspecified joint (principal)
CPT/HCPCS: 36415; 85027; 85652; 84550; 86140

== ENCOUNTER 2020-08-15 10:13 | Outpatient (REF) | payer OTHER, SELFPAY ==
--- NOTE | 2020-08-15 08:20 | PAPFT_PTH ---
PATIENT: Chasity Jack LOC: [facility] U#:[id number] AGE/SX: 30/F ROOM: RE08/15/[address]: JAMIE Bacon : 1990 BED: DIS: 08/15/2020 SPEC #: [id number] RECD: 08/15/20 12:53 STATUS: TATY REQ #: [id number] ROBERT: 08/15/20 08:[address]: Bonnie Mcbride DEPT: [facility] Cytology RECD BY: Chayo Sloan ENTERED: 08/15/20 12:53 SP TYPE: PAPFT OTHR DR: Vianca Mccarty MD, DC Tissues: 1 - CX/ENDOCX FOR PAP SMEARS Procedures: PAP THIN PREP/UVM Screening Comments: [id number]
[2020-08-18 15:58] LABS: Chlamydia Result Negative (Negative); GC Result Negative (Negative)
== END 2020-08-15 10:33 ==
LOC: LBN 10:13
PROVIDERS: PCP Family Medicine; Visit Provider Nurse Practitioner Family
DX: Z11.3 Encounter for screening for infections with a predominantly sexual mode of transmission (principal); Z12.4 Encounter for screening for malignant neoplasm of cervix
CPT/HCPCS: 87491; 87591; 88142

== ENCOUNTER 2020-09-15 14:41 | Outpatient (REF) | payer OTHER, SELFPAY ==
[2020-09-16 12:29] LABS: HSV 1 DNA Result Positive (Negative); HSV 2 DNA Result Negative (Negative)
[2020-09-16 15:23] LABS: Chlamydia Result Negative (Negative); GC Result Negative (Negative)
== END 2020-09-15 14:42 | disposition home or self-care (01) ==
LOC: LBN 14:41
PROVIDERS: PCP Family Medicine; Visit Provider Nurse Practitioner Family
DX: N90.9 Noninflammatory disorder of vulva and perineum, unspecified (principal); Z11.3 Encounter for screening for infections with a predominantly sexual mode of transmission
CPT/HCPCS: 87491; 87529; 87591

== ENCOUNTER 2020-09-16 02:41 | Outpatient (CLI) | payer OTHER, SELFPAY ==
[2020-09-17 10:26] LABS: Lyme Ab w Rflx to Lyme Confirm Negative (Negative)
[2020-09-19 22:12] LABS: Anaplasma phagocytophilum Negative (Negative); B. miyamotoi PCR Negative (Negative); Babesia divergens/MO-1 Negative (Negative); Babesia duncani Negative (Negative); Babesia microti Negative (Negative); Ehrlichia chaffeensis Negative (Negative); Ehrlichia ewingii/canis Negative (Negative); Ehrlichia muris eauclairensis Negative (Negative)
== END 2020-09-16 02:42 | disposition home or self-care (01) ==
LOC: LBO 02:41
PROVIDERS: PCP Family Medicine; Visit Provider Family Medicine
DX: G62.89 Other specified polyneuropathies (principal)
CPT/HCPCS: 36415; 87798; 86618

== ENCOUNTER 2020-10-01 02:52 | Outpatient (CLI) | payer OTHER, SELFPAY ==
[2020-10-01 12:33] LABS: Abs Immature Grans 0.02 10^3/uL (0.0-0.06); Absolute Basophil Count 0.07 10^3/uL (0.0-0.2); Absolute Lymphocyte Count 2.23 10^3/uL (1.2-3.4); Absolute Monocyte Count 0.55 10^3/uL (0.1-0.8); Absolute Neutrophil Count 5.97 10^3/uL (1.2-6.7); Basophils % 0.8; Eosinophils % 4.3; HCT 40.3 % (36.0-46.0); HGB 13.2 g/dL (11.2-15.7); Immature Grans % 0.2; Lymphocytes % 24.1; MCH 29.9 pg (27.0-33.0); MCHC 32.8 % (32.0-36.0); MCV 91.4 fL (80-95); MPV 9.7 fL (8.0-11.0); Neutrophils % 64.6; Nucleated RBC 0 %; Platelet Count 298 10^3/uL (130-400); RBC 4.41 10^6/uL (3.93-5.22); RDW 13.4 % (11.7-14.6); RDW-SD 45.4 fL; WBC 9.24 10^3/uL (4.4-10.8)
[2020-10-01 13:59] LABS: C-Reactive Protein 1.16 mg/dL (0.0-0.3)
[2020-10-01 15:57] LABS: ESR 16 mm/hr (<or=20)
[2020-10-01 23:07] LABS: Rheumatoid Factor <8.6 IU/mL (<12.0)
[2020-10-02 10:41] LABS: Cyclic Citrullinated Peptide <2.5 U/mL (<5.0)
[2020-10-02 13:48] LABS: ANA Interpretation Positive (Negative); ANA Titer Pattern 1:320 Speckled
== END 2020-10-01 02:53 | disposition home or self-care (01) ==
LOC: LBO 02:52
PROVIDERS: PCP Family Medicine; Visit Provider Family Medicine
DX: G62.9 Polyneuropathy, unspecified (principal); M79.641 Pain in right hand; M79.642 Pain in left hand; M25.59 Pain in other specified joint
CPT/HCPCS: 36415; 85652; 86200; 84550; 85025; 86038; 86140; 86431

== ENCOUNTER 2020-10-23 01:32 | Outpatient (CLI) | payer OTHER, SELFPAY ==
--- NOTE | 2020-10-23 08:00 | DI.RAD_ITS ---
EXAM: XR CERVICAL SPINE COMP 4-5V CLINICAL HISTORY: b/l hand pain - ? cervical ribs,G54.0. TECHNIQUE: 2D digital imaging was performed. COMPARISON: No exams were available for comparison FINDINGS: No evidence of fracture, listhesis, nor offset of the spinal laminar line. Disc spaces exhibit evan l height at each level. Oblique views reveal no Luschka joint osteophytes. Facet joints unremarkabl e. No cervical ribs. No osseous lesions. IMPRESSION: No significant radiograph findings. There is some straightening of the cervical spine noted which ma y be due to muscle spasm. DATA REPOSITORY: RADIATION DOSE DELIVERED:
== END 2020-10-23 01:52 ==
PROVIDERS: PCP Family Medicine; Visit Provider Family Medicine
DX: G54.0 Brachial plexus disorders (principal); M79.642 Pain in left hand; M79.641 Pain in right hand
CPT/HCPCS: 72050

== ENCOUNTER 2020-12-26 05:22 | Emergency (ER) | payer OTHER, SELFPAY ==
[2020-12-26] VITALS (9 sets, daily range): BP systolic 114–137; BP diastolic 80–89; PULSE 58–84; RESP 16; TEMP 36.7; O2SAT 98–100
--- NOTE | 2020-12-26 05:29 | ED.GENADUL_ITS ---
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 Details Clinical Impression: Pelvic pain Primary Care Provider: Vianca Mccarty ED Provider: Kendrick Moraes Home Meds and New Rx's Prescriptions: Continued levonorgestrel-ethinyl estrad [Aviane] 0.1-20 mg-mcg tablet 1 tab PO DAILY Qty: 84 RF: 3 prednisone 20 mg tablet See Rx Instructions PO DAILY Qty: 11 RF: 0 Discharge Instructions Additional Instructions: The ultrasound showed a small amount of fluid which could indicate you had a small ovarian cyst that ruptured, no visible cyst was seen on the CT Follow up with your primary care provider or women's wellness provider within a week espsecially if pain continues if you have worsening pain, fevers, persistent vomit or feel more ill return to the emergency department Medical Decision Making <Skip Solis MD - Last Filed: 12/26/20 05:50> Patient with prior history of ovarian cyst and ruptured hemorrhagic ovarian cyst requiring cystectomy. Has had discomfort for 2 weeks similar to ovarian cyst. Sudden change in worsening of pain this morning which woke her up. This feels the same as previous episodes that required surgery. Had nausea but now resolved. No lightheadedness. No vaginal bleeding. We will start IV and check basic labs. Need urine test to rule out possibility of ectopic. Will order ultrasound to evaluate for ruptured cyst versus torsion. Tenderness is much lower than McBurney's point. Doubt appendicitis. Pelvic deferred as ultrasound to be obtained. Differential Diagnosis Differential Diagnosis: Ovarian cyst, ovarian torsion, ectopic Lab Data Lab results reviewed: Yes I reviewed the patient's lab results. <Kendrick Moraes MD - Last Filed: 12/26/20 09:35> Patient's labs unremarkable and u/s shows nonspecific free fluid, no obvious ovarian cyst and normal flow to the ovaries. Could have had a small cyst that ruptured, she tells me she has had some discomfort for a month and wosened this morning so could have ruptured this morning. HAs mild tenderness in the very low right abdomen. no reboud tenderness. I discussed with pt that the ultrasoud doesn't rule out appendicitis and to evaluate for this a ct would be the test of choice. Her history and exam are not consistent with appendicitis and discussed this with the patient but that this again doesn't rule out appendicitis. After lengthy discussion shared decision making was performed weighing risks of another ct adomen (had one in August as well) vs watchful weighting and she would prefer to wait and if worsening return for repeat exam and possible cat scan. Will d/c and advised to f/u with pcp and discussed return precautions Imaging Data Radiologic Study: Attestation: I personally reviewed and interpreted this imaging study as follows: Imaging: Ultrasound Radiologist's impression: IMPRESSION: Nonspecific free pelvic fluid.? No other abnormality seen. Lab Data Lab results reviewed: Yes I reviewed the patient's lab results. HPI <Skip Solis MD - Last Filed: 12/26/20 05:50> General Mode of arrival: ambulatory . Date/Time Provider Initiated Documentation: 12/26/20 05:29 . Limitations to Documentation: no limitations . Information obtained by: patient and RN notes reviewed . HPI Narrative: Patient presents to ED with sudden worsening of right pelvic pain and pressure into her rectum. Patient has had discomfort in the same area for about 2 weeks now. She has previous history of ovarian cysts, but typically rides them out unless they become severe as occurred this morning. She has had to have 2 previous surgeries for hemorrhagic cysts and cystectomy. Woke up this morning with severe right adnexal pain and nausea. She had no vaginal bleeding or discharge. Denies . Denies urinary symptoms. Denies back pain. Was concerned regarding another possible ruptured cyst and presented to ED for evaluation. Related Data Home Medications Medication Instructions Recorded Confirmed levonorgestrel-ethinyl estradiol 1 tab PO DAILY #84 tab 08/15/20 12/26/20 0.1 mg-20 mcg tablet prednisone 20 mg tablet See Rx Instructions PO DAILY #11 10/22/20 12/26/20 tab Previous Rx's Medication Instructions Recorded levonorgestrel-ethinyl estradiol 1 tab PO DAILY #84 tab 08/15/20 0.1 mg-20 mcg tablet prednisone 20 mg tablet See Rx Instructions PO DAILY #11 10/22/20 tab Allergies Allergy/AdvReac Type Severity Reaction Status Date / Time No Known Allergies Allergy Verified 12/26/20 05:32 General CARMEN: 3 Review of Systems <Skip Solis MD - Last Filed: 12/26/20 05:50> Narrative: As documented in HPI otherwise negative as below. Const: no fever, chills, weakness Resp: no cough, SOB, pleuritic pain CV: no CP, diaphoresis, edema, syncope GI: no vomiting, diarrhea Neuro: no headache, numbness, focal weakness, confusion PFSH <Skip Solis MD - Last Filed: 12/26/20 05:50> Medical History Benign paroxysmal positional vertigo Bilateral carpal tunnel syndrome Hx of ovarian cyst 05/2018 R ruptured hemorrhagic cyst. Required surgical evacuation of hemoperitoneum. 08/2019. L ruptured hemorrhagic cyst ~ 800cc. Changed from OCPs to Depo Lupron. Lichen sclerosus Lyme disease Mononucleosis Scoliosis Surgical History H/O laparoscopy 05/2018. Laparoscopic evacuation of hemoperitoneum after ruptured R ovarian cyst. 08/2019. Identical issue, only it occurred on L ovary Family History Grandfather Heart disease paternal Grandmother Breast cancer paternal Maternal Aunt Diabetes paternal Mother No problems noted. Father Hypertension Brother No problems noted. Brother No problems noted. Brother No problems noted. Social History Smoking/Tobacco Use Status: Never Second Hand Exposure: No Smoking risk assessment performed?: Yes Alcohol Intake: current Alcohol Intake frequency: holidays/special occasions only Drug use: Never Substance use type: does not use Caregiver/Support person: No Household members: significant other Housing: house Number of Children: 0 Communication Needs: None Do you need help understanding health information?: Never Pets and animals: Yes Pets and animals: cat(s) Sexually active: Yes Do you think of yourself as: straight/heterosexual Current gender identity: female What is your relationship status?: living with partner How often do you talk on the phone with friends or family?: twice per week How often do you get together with friends or relatives?: once per week How often do you attend jainism or shinto services?: 1-3 times per year Do you belong to any clubs or organized social groups?: no Panel score (0-1 are the most socially isolated patients): 2 What type of physical activity do you participate in: weight lifting Duration: 60-90 minutes/day Frequency: 3-4 times per week Caitlin/Anabaptist: Taoism Seatbelt use: always Helmet use: Yes Helmet use: always Drive intox or ride w/intox grain combine driver: No Do you feel safe at home: Yes Do you feel safe in your relationship?: Yes Victim of physical abuse: No Victim of emotional abuse: No Victim of sexual abuse: No Would you like helpful sources: No Female Reproductive History Menstrual control method: pills History History 0 Para Hx # Term Pregnancies Multiple births Hx # Pregnancies Ectopic pregnancies AB induced Hx Number of Living Children AB spontaneous Exam <Skip Solis MD - Last Filed: 12/26/20 05:50> Narrative Exam Narrative: Const: WDWN female in NAD. HEENT: NC/AT. Normal facial exam. Eyes: Normal conjunctiva and sclera. Neck: Supple. Trachea midline. Lungs: Normal respiratory effort. Lungs are clear. Cor: RRR without murmur/gallop. Good radial pulses. GI: Soft and ND. Tender right suprapubic area with mild guarding. Pelvic: deferred Neuro: A+O x 3. Normal speech, mentation, gait. Cranial nerves II - XII grossly intact. No gross motor or sensory deficit. Ext: No C/C/E. Skin: Warm and dry without rash. Sign Out <Skip Solis MD - Last Filed: 12/26/20 05:50> Sign Out Data: Sign Out Comment: Pending pelvic ultrasound. Last updated by Skip Solis MD at 12/26/20 07:32
--- NOTE | 2020-12-26 05:30 | DI.US_ITS ---
Exam(s) US PELVIS TRANSVAGINAL EXAM: US PELVIS TRANSVAGINAL CLINICAL HISTORY: sudden worsening of r adnexal pain TECHNIQUE: Ultrasound performed using standard protocol. COMPARISON: US US PELVIS TRANSVAGINAL from 09/04/2019 FINDINGS: Pelvic ultrasound was performed transabdominal and transvaginally. The uterus measures 5.3 x 2.6 x 3 .4 cm. Endometrial stripe is homogeneous and about 7 millimeters in thickness. No focal myometrial abnormality seen. The ovaries have a normal follicular appearance. Right ovary measures 31 x 24 x 18 millimeters and l eft ovary measures 37 x 24 x 16 millimeters. No Doppler flow abnormality identified in either ovary. There is moderate free fluid in both adnexal regions and adjacent to the uterine fundus. This is a n onspecific finding but could represent recently ruptured ovarian cyst. IMPRESSION: Nonspecific free pelvic fluid. No other abnormality seen. DATA REPOSITORY:
[2020-12-26 06:03] LABS: Abs Immature Grans 0.03 10^3/uL (0.0-0.06); Absolute Basophil Count 0.03 10^3/uL (0.0-0.2); Absolute Eosinophil Count 0.12 10^3/uL (0.0-0.7); Absolute Lymphocyte Count 2.83 10^3/uL (1.2-3.4); Absolute Monocyte Count 0.62 10^3/uL (0.1-0.8); Absolute Neutrophil Count 4.44 10^3/uL (1.2-6.7); Basophils % 0.4; Eosinophils % 1.5; HCT 38.3 % (36.0-46.0); HGB 12.8 g/dL (11.2-15.7); Immature Grans % 0.4; Lymphocytes % 35.1; MCH 30.6 pg (27.0-33.0); MCHC 33.4 % (32.0-36.0); MCV 91.6 fL (80-95); MPV 9.6 fL (8.0-11.0); Monocytes % 7.7; Neutrophils % 54.9; Nucleated RBC 0 %; Platelet Count 215 10^3/uL (130-400); RBC 4.18 10^6/uL (3.93-5.22); RDW 12.4 % (11.7-14.6); RDW-SD 41.2 fL; WBC 8.07 10^3/uL (4.4-10.8)
[2020-12-26 06:05] LABS: Bilirubin Negative (Negative); Blood Negative (Negative); Clarity Clear (Clear); Glucose Negative (Negative); Ketones Negative (Negative); Leukocyte Esterase Trace (Negative); Nitrite Negative (Negative); Specific Gravity >= 1.030 (1.005-1.025); Urobilinogen 0.2 EU/dL (Up TO 0.2); pH 5.5 (5-8)
[2020-12-26] MEDS: Lactated Ringers 1,000 ML 125 ML IV (06:06)
[2020-12-26] MEDS: Ketorolac 30 MG/ML VIAL IVP (06:06)
[2020-12-26 06:11] LABS: Anion Gap 8.2 mmol/L (3-11); BUN 18 mg/dL (7-18); CO2 26.8 mmol/L (21.0-32.0); CREATININE 0.9 mg/dL (0.55-1.02); Calcium 8.1 mg/dL (8.5-10.1); Chloride 106 mmol/L (98-107); Glucose 81 mg/dL (74-106); Potassium 3.6 mmol/L (3.5-5.1); Sodium 141 mmol/L (136-145)
[2020-12-26 06:12] LABS: Bacteria Few HPF (Negative); C & S Indicated? No/Sq. Contamination; Casts Negative LPF (Negative); Crystals Negative HPF (Negative); Epithelial Cells Moderate HPF (Negative); Mucus Trace (Negative); RBC 0-2 HPF (0-2)
--- NOTE | 2020-12-31 22:06 | NUR.NOTE ---
Nursing Note: in chart for reviewing infusion documentation.
== END 2020-12-26 09:56 | disposition home or self-care (01) ==
PROVIDERS: Emergency Medicine; Emergency Provider Emergency Medicine; PCP Family Medicine
DX: R10.2 Pelvic and perineal pain (principal)
CPT/HCPCS: 80048; 81025; 96374; 99284; 76830; 76856; 81003; 81015; 85025; 99283; J1885

== ENCOUNTER 2021-02-03 03:13 | Outpatient (CLI) | payer OTHER, SELFPAY ==
[2021-02-03 09:18] LABS: Abs Immature Grans 0.02 10^3/uL (0.0-0.06); Absolute Basophil Count 0.04 10^3/uL (0.0-0.2); Absolute Eosinophil Count 0.08 10^3/uL (0.0-0.7); Absolute Lymphocyte Count 1.33 10^3/uL (1.2-3.4); Basophils % 0.6; Eosinophils % 1.2; HCT 39.9 % (36.0-46.0); HGB 13.2 g/dL (11.2-15.7); Immature Grans % 0.3; Lymphocytes % 20.2; MCH 30.9 pg (27.0-33.0); MCHC 33.1 % (32.0-36.0); MCV 93.4 fL (80-95); MPV 9.5 fL (8.0-11.0); Monocytes % 6.1; Neutrophils % 71.6; Nucleated RBC 0 %; Platelet Count 261 10^3/uL (130-400); RBC 4.27 10^6/uL (3.93-5.22); RDW-SD 44.4 fL; WBC 6.57 10^3/uL (4.4-10.8)
[2021-02-03 11:05] LABS: ALT 23 U/L (14-59); AST 33 U/L (15-37); C-Reactive Protein 1.15 mg/dL (0.0-0.3); CREATININE 0.9 mg/dL (0.55-1.02)
== END 2021-02-03 03:14 | disposition home or self-care (01) ==
LOC: LBO 03:13
PROVIDERS: PCP Family Medicine; Visit Provider Internal Medicine Rheumatology
DX: Z79.899 Other long term (current) drug therapy (principal)
CPT/HCPCS: 36415; 82565; 84450; 84460; 85025; 86140

== ENCOUNTER 2021-08-20 03:47 | Outpatient (CLI) | payer OTHER, SELFPAY ==
[2021-08-20 12:30] VITALS: BP 127/80; PULSE 76; RESP 18; TEMP 37.7; O2SAT 96
[2021-08-20] MEDS: Normal Saline 250 ML 30 ML IV (12:39)
[2021-08-20] MEDS: Normal Saline Flush 10 ML SYR IVP (12:40)
[2021-08-20 12:44] VITALS: BP 117/82; PULSE 79; RESP 16; TEMP 37.3; O2SAT 99
[2021-08-20 14:08] VITALS: BP 121/81; PULSE 83; RESP 16; TEMP 36.4; O2SAT 98
== END 2021-08-20 03:48 | disposition home or self-care (01) ==
LOC: INF 03:47
PROVIDERS: PCP Family Medicine; Visit Provider Family Medicine
DX: U07.1 COVID-19 (principal)
CPT/HCPCS: 96365; Q0047

== ENCOUNTER 2021-09-01 11:54 | Outpatient (REF) | payer OTHER, SELFPAY ==
--- NOTE | 2021-09-01 11:30 | PAPFT_PTH ---
PATIENT: Chasity Jack LOC: [facility] U#:[id number] AGE/SX: 31/F ROOM: RE09/01/[address]: JAMIE Bacon : 1990 BED: DIS: 09/01/2021 SPEC #: [id number] RECD: 09/01/21 12:36 STATUS: TATY REMelissa #: [id number] ROBERT: 09/01/21 11:[address]: Bonnie Mcbride DEPT: [facility] Cytology RECD BY: Chayo Sloan ENTERED: 09/01/21 12:36 SP TYPE: PAPFT OTHR DR: Vianca Mccarty MD, DC Tissues: 1 - CX/ENDOCX FOR PAP SMEARS Procedures: PAP THIN PREP/UVM Screening Comments: [id number]
[2021-09-03 07:48] LABS: Chlamydia Result Negative (Negative); GC Result Negative (Negative)
== END 2021-09-01 11:55 | disposition home or self-care (01) ==
LOC: LBN 11:54
PROVIDERS: PCP Family Medicine; Visit Provider Nurse Practitioner Family
DX: Z11.3 Encounter for screening for infections with a predominantly sexual mode of transmission (principal); Z12.4 Encounter for screening for malignant neoplasm of cervix
CPT/HCPCS: 87491; 87591; 88142